=== PATIENT | female | born 1995 | race Caucasian/White ===

== ENCOUNTER 2022-04-03 23:03 | Emergency (ER) | payer MEDICAID ==
[~2022-04-03] VITALS: Ht 157.5 cm; Wt 98.9 kg
[2022-04-03 23:11] VITALS: BP_SYST 110
--- NOTE | 2022-04-03 23:15 | NUR ---
PT HERE C/O NUMBNESS AT THE RT SIDE OF THE MOUTH AROUND 1999, AND PER PT IT LASTED FOR 15-20. PT DENIES SLURRING OF SPEECH. NO WEAKNESS ON BLE/BUE. 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 PT DENIES DENIES DIZZINESS, PER PT SHE HAS MILD HEADACHE AT THIS TIME. PER PT SHE IS 16 WKS G2,P0, LMP 11/24/21. PMH:DENIES PT AAOX4, NO SOB NOTED AND NAD. PT AMBULATED WITH STEADY GAIT TO RM 7, REPORT GIVEN TO SYLVIA SENA. PENDING MD RIOS
--- NOTE | 2022-04-03 23:22 | NUR ---
PT IS AA&OX4. AFEBRILE, NAD. PER PT, ALL THE FACIAL NUMBNESS WENT AWAY NOW AND THERE'S NO LONGER ANY FACIAL NUMBNESS AT THE MOMENT, BUT ERALIER, IT STARTED ON THE RIGHT NOSE THEN WENT DOWN TO THE R SIDE OF UPPER LIP, THEN TO THE R SIDE OF LOWER LIP THEN THE TONGUE THEN THE PALLET. PER PT, SHE IS JUST CONCERNED BEC SHE'S . NO FACIAL DROOPING, NO SLURRED SPEECH. PERRLA. NO FACIAL PAIN. WILL CON'T TO MONITOR. AMBULATORY W/ STEADY GAIT. SAFE & HAZARD FREE ENVIRONMENT PROVIDED.
--- NOTE | 2022-04-03 23:22 | NUR ---
ER Dr. NEWBY at bedside examining patient.
[2022-04-04 01:03] LABS: CLARITY/URINE CLEAR (CLEAR); COLOR,URINE YELLOW (YELLOW); GLUCOSE,URINE NEGATIVE (NEGATIVE); KETONES,URINE TRACE (NEGATIVE); PROTEIN URINE NEGATIVE (NEGATIVE)
[2022-04-04 01:04] LABS: BILIRUBIN,URINE NEGATIVE (NEGATIVE); BLOOD, URINE NEGATIVE (NEGATIVE); LEUKOCYTE ESTERASE ,URINE NEGATIVE (NEGATIVE); NITRITE, URINE NEGATIVE (NEGATIVE); UROBILINOGEN,URINE 0.2 (0.2-1.0)
[2022-04-04 01:06] LABS: BACTERIA,URINE None Seen /HPF (None Seen); MUCUS,URINE None Seen /LPF (None Seen); RBC,URINE NONE SEEN /HPF (0-3); WBC,URINE 0-3 /HPF (0-3)
[2022-04-04 01:25] LABS: BASOPHILS % (AUTO) 0.5 % (0.0-2.0); EOSINOPHILS # (AUTO) 0.1 K/uL (0.0-0.4); EOSINOPHILS % (AUTO) 0.9 % (0.0-4.0); HEMATOCRIT 37.3 % (36-48); LYMPHOCYTES # (AUTO) 2.4 K/uL (1.0-5.5); LYMPHOCYTES % (AUTO) 23.9 % (20.5-51.5); MEAN CORPUSCULAR HEMOGLOBIN 31 pg (27-31); MEAN CORPUSCULAR HGB CONC 35 % (32-36); MEAN CORPUSCULAR VOLUME 88 fL (79.0-98.0); MONOCYTES # (AUTO) 0.7 K/uL (0.0-1.0); MONOCYTES % (AUTO) 7.3 % (1.7-9.3); NEUTROPHILS # (AUTO) 6.8 K/uL (1.8-7.7); NEUTROPHILS % (AUTO) 67.4 % (40.0-70.0); PLATELET COUNT (AUTO) 241 K/uL (130-430); RED BLOOD CELL COUNT(AUTO) 4.26 MIL/uL (4.2-6.2); RED CELL DISTRIBUTION WIDTH 13.1 % (9.0-15.0)
[2022-04-04 01:40] LABS: CALCIUM 8.9 mg/dL (8.4-11.0); CREATININE 0.8 mg/dL (0.55-1.30); POTASSIUM 3.4 mmol/L (3.5-5.1)
[2022-04-04 02:11] LABS: TOTAL BILIRUBIN 0.5 mg/dL (0.0-1.0)
[2022-04-04 02:26] VITALS: BP_SYST 122
--- NOTE | 2022-04-04 02:26 | NUR ---
Patient given written and verbal discharge instructions and verbalizes understanding. ER MD DR. NEWBY discussed with patient the results and treatment provided. Patient in stable condition. ID arm band removed. Patient educated on pain management and to follow up with PMD. Pain Scale 0/10. Opportunity for questions provided and answered. Medication side effect fact sheet provided.
== END 2022-04-04 02:26 | disposition home or self-care (01) ==
LOC: SED 23:03
DX: O03.9 Complete or unspecified spontaneous abortion without complication (principal); O26.892 Other specified pregnancy related conditions, second trimester; Z3A.17 17 weeks gestation of pregnancy; Z79.899 Other long term (current) drug therapy
CPT/HCPCS: 36415; 76805-TC; 80053; 81000; 83735; 84702; 85025; 99284